=== PATIENT | female | born 1965 | race Caucasian/White ===

== ENCOUNTER → 2016-11-16 | Outpatient (CLI) | payer BC ==
[2016-11-16 07:56] LABS: Basophils % (A) 1 %; CH 31.2; CHCM 33.5; Eosinophils # (A) 0.2 k/uL (0-0.7); Eosinophils % (A) 4 %; HCT 45.5 % (34.0-46.0); HDW 2.77; HGB 14.6 gm/dL (11.4-16.0); Luc # (Auto) 0.16; Luc % (Auto) 3; Lymphocytes # (A) 1.8 k/uL (1.0-4.8); Lymphocytes % (A) 30 %; MCH 30.1 pg (25.0-35.0); MCHC 32.1 g/dL (31.0-37.0); MCV 93.7 fL (80.0-100.0); Mean Platelet Volume 7.1; Monocytes # (A) 0.4 k/uL (0-1.0); Monocytes % (A) 7 %; Neutrophils # (A) 3.3 k/uL (1.3-7.7); Neutrophils % (A) 56 %; RBC 4.85 m/uL (3.80-5.40); RDW 12.9 % (11.5-15.5); WBC 5.9 k/uL (3.8-10.6)
[2016-11-16 08:39] LABS: ALT 30 U/L (9-52); AST 19 U/L (14-36); Alkaline Phosphatase 47 U/L (38-126); Anion Gap 8 mmol/L; Blood Urea Nitrogen 16 mg/dL (7-17); Carbon Dioxide 28 mmol/L (22-30); Chloride 104 mmol/L (98-107); Cholesterol 215 mg/dL (<200); Glucose 89 mg/dL (74-99); HDL Cholesterol 56 mg/dL (40-60); Non-African American GFR(MDRD) >60 (>60 ml/min/1.73 sqM); Potassium 3.7 mmol/L (3.5-5.1); Sodium 140 mmol/L (137-145); Total Bilirubin 1.2 mg/dL (0.2-1.3); Total Protein 6.4 g/dL (6.3-8.2); Triglycerides 232 mg/dL (<150)
== END | disposition home or self-care (01) ==
LOC: LABWHC1 07:10
PROVIDERS: ATTEND Nurse Practitioner Family
DX: Z00.00 Encounter for general adult medical examination without abnormal findings (principal); E89.0 Postprocedural hypothyroidism; R60.9 Edema, unspecified; Z13.220 Encounter for screening for lipoid disorders; Z13.21 Encounter for screening for nutritional disorder; Z13.228 Encounter for screening for other metabolic disorders
CPT/HCPCS: 36415; 80053; 80061; 82306; 84439; 84443; 85025

== ENCOUNTER → 2017-12-01 | Outpatient (CLI) | payer BC ==
[2017-12-01 15:08] LABS: Basophils % (A) 0 %; Eosinophils # (A) 0.2 k/uL (0-0.7); Eosinophils % (A) 2 %; HGB 15.3 gm/dL (11.4-16.0); Lymphocytes # (A) 2.4 k/uL (1.0-4.8); Lymphocytes % (A) 26 %; MCH 30.8 pg (25.0-35.0); MCHC 33.2 g/dL (31.0-37.0); MCV 92.9 fL (80.0-100.0); Mean Platelet Volume 7.3; Monocytes # (A) 0.7 k/uL (0-1.0); Monocytes % (A) 7 %; Neutrophils # (A) 5.7 k/uL (1.3-7.7); Neutrophils % (A) 63 %; Platelet Count 282 k/uL (150-450); RBC 4.95 m/uL (3.80-5.40); RDW 12.6 % (11.5-15.5); WBC 9.1 k/uL (3.8-10.6)
[2017-12-01 15:19] LABS: Calcium 9.4 mg/dL (8.4-10.2); Potassium 4.1 mmol/L (3.5-5.1)
== END | disposition home or self-care (01) ==
LOC: LABPAT 14:08
PROVIDERS: ATTEND Urology
DX: Z01.818 Encounter for other preprocedural examination (principal); Z01.812 Encounter for preprocedural laboratory examination; N39.46 Mixed incontinence; R31.29 Other microscopic hematuria; E03.9 Hypothyroidism, unspecified; R53.83 Other fatigue
CPT/HCPCS: 36415; 80048; 85025; 87086; 93005

== ENCOUNTER 2017-12-08 06:00 | Day surgery (SDC) | payer BC ==
[2017-12-05 09:26] VITALS: BMI 31.8
--- NOTE | 2017-12-07 17:10 | P.GSHP ---
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 She has previously performed Kegel exercises, without benefit. The urge component of the incontinence is insignificant. Physical examination reveals mild urethral hypermobility, and urodynamic testing is consistent with type II stress urinary incontinence. She has elected to undergo a TOT sling. - Gastrointestinal Gastrointestinal: Reports heartburn - Genitourinary (Female) Genitourinary: Reports mixed incontinence - Musculoskeletal Musculoskeletal: Reports neck stiffness - Neurological Neurological: Reports migraines Past Medical History Past Medical History: GERD/Reflux, Hyperlipidemia, Thyroid Disorder Past Surgical History: Back Surgery, Tubal Ligation Smoking Status: Never smoker - Past Family History Father Family Medical History: Hypertension Mother Family Medical History: Diabetes Mellitus, Hypertension Medications and Allergies Home Medications Medication Instructions Recorded Confirmed Type ALPRAZolam [Xanax] 0.25 mg PO TID PRN 12/05/17 12/05/17 History Ascorbic Acid [Vitamin C] 1,000 mg PO DAILY 12/05/17 12/05/17 History Cholecalciferol (Vitamin D3) 2,000 unit PO DAILY 12/05/17 12/05/17 History [Vitamin D3] Fish Oil/Dha/Epa [Fish Oil 1,200 1 each PO DAILY 12/05/17 12/05/17 History mg Fish Oil] Hydrochlorothiazide [Hydrodiuril] 25 mg PO DAILY 12/05/17 12/05/17 History Levothyroxine Sodium [Synthroid] 175 mcg PO DAILY 12/05/17 12/05/17 History Liothyronine Sodium [Cytomel] 25 mcg PO DAILY 12/05/17 12/05/17 History Multivitamins, Thera [Multivitamin 1 tab PO DAILY 12/05/17 12/05/17 History (formulary)] Vitamin B Complex 1 each PO DAILY 12/05/17 12/05/17 History Zinc 50 mg PO DAILY 12/05/17 12/05/17 History Allergies Allergy/AdvReac Type Severity Reaction Status Date / Time codeine AdvReac Nausea & Verified 12/05/17 09:31 Vomiting Surgical - Exam - General well developed, well nourished, no distress - Respiratory normal respiratory effort, clear to auscultation - Cardiovascular Rhythm: regular Abnormal Heart Sounds: no systolic murmur, no diastolic murmur - Abdomen Abdomen: soft, non tender, no guarding, no rigid, no rebound - Genitourinary normal external genitalia - Psychiatric oriented to time, oriented to person, oriented to place, speech is normal, memory intact Assessment and Plan (1) Mixed incontinence urge and stress (male)(female) Status: Acute Code(s): N39.46 - MIXED INCONTINENCE SNOMED Code(s): 558591688 Plan: The patient has elected to undergo an Obtryx subfascial sling. The procedure was reviewed in detail with the patient. Potential risks include anesthesia, bleeding, infection, persistent incontinence, urinary retention, increased urgency, and graft erosion. Controversy involving the use of synthetic slings was also discussed in detail.
[~2017-12-08 06:00] MED LIST: CLINDAMYCIN 900 MG in DEXTROSE 5% IN WATER 50 ML IVPB ONE; DEXAMETHASONE SOD PHOSPHATE 10 MG/ML 1 ML VIAL IV ONE; GENTAMICIN 120 MG in SODIUM CHLORIDE 0.9% 100 ML IVPB ONE; LACTATED RINGERS 1,000 ML IV SCH; ONDANSETRON 4 MG/2 ML VIAL IVP ONE
[2017-12-08] MEDS ORDERED: LIDOCAINE 1% 20 ML VIAL (10MG/ML) FOR IV START INTRADERMA ONE (06:41)
[2017-12-08] MEDS ORDERED: SCOPOLAMINE 1.5MG/72HR PATCH TRANSDERM STA (06:50)
[2017-12-08] MEDS ORDERED: LIDOCAINE 1%-EPI 1:100,000 30 ML VIAL SQ ONE (07:34)
[2017-12-08] MEDS ORDERED: fentaNYL (PF) 50 MCG/ML 2 ML AMP ONE (07:34)
[2017-12-08] MEDS ORDERED: GENTAMICIN 40 MG/ML 2 ML VIAL IRRIGATION ONE (07:34)
[2017-12-08] MEDS ORDERED: PROPOFOL 10 MG/ML 20 ML VIAL IV ONE (07:34)
[2017-12-08] MEDS ORDERED: LIDOCAINE 1% INJ 10MG/ML (20 ML MDV) ONE (07:34)
[2017-12-08] MEDS ORDERED: MIDAZOLAM 2 MG/2 ML VIAL ONE (07:34)
[2017-12-08] MEDS ORDERED: ePHEDrine SULFATE/0.9% NACL/PF 50 MG/5 ML SYRINGE IV ONE (07:34)
[2017-12-08] MEDS ORDERED: SUCCINYLCHOLINE CHLORIDE 100 MG/5 ML SYR IV ONE (07:34)
[2017-12-08] MEDS ORDERED: PHENYLEPHRINE-0.9% NACL SYG 1 MG/10 ML SYRINGE ONE (07:34)
--- NOTE | 2017-12-08 08:40 | P.OP ---
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 She has previously performed Kegel exercises, without benefit. The urge component of the incontinence is insignificant. Physical examination reveals mild urethral hypermobility, and urodynamic testing is consistent with type II stress urinary incontinence. She has elected to undergo a TOT sling. Operative Findings: No anatomic variation noted. Description of Procedure: The patient was taken to the operating room and placed in the dorsal lithotomy position, with her legs supported in Jakub stirrups. The perineum, lower abdomen, and vagina were prepped and draped sterilely. A 16-Bahamian Veloz catheter was placed. Silk sutures were placed to retract the labia laterally on each side. 1% Lidocaine with epinephrine was injected submucosally within the anterior vaginal wall, over the urethra. The scalpel was then used to make an anterior midline vaginal incision over the urethra. Metzenbaum scissors were used to dissect laterally within the submucosal plane, to the inferior pubic ramus. The scalpel was used to make bilateral groin incisions at the level of the clitoris. Subcutaneous tissues were spread with a hemostat. Each of the helical needles were passed through the respective groin incision, and turned such that the needle tip wrapped around the pubis. The needle tips were guided digitally into the vaginal incision. The Obtryx graft, which had been previously soaked in antibiotic solution, was secured to the needle tips in the standard fashion. The needles were then withdrawn, and the position of the graft was adjusted such that it overlie the mid urethra, as desired. With a hemostat placed between the graft and the urethra to prevent tension of the graft over the urethra, the plastic sheath was removed from the ends of the graft. The ends of the graft were cut beneath the skin incisions, and these incisions were closed using 4-0 Vicryl suture in a subcuticular fashion. Hemostasis within the vaginal incision was excellent, and the vaginal incision was closed using 2-0 Vicryl suture in a running fashion. Cystoscopy was performed. The 30 lens was used to introduce the 19-Bahamian Storz cystoscopic sheath through the urethra and into the bladder under direct vision. The urethra and bladder were unremarkable. There was no evidence of perforation. Both ureteral orifices were of normal anatomic location and configuration, and clear urine effluxed from both. No tumors or foreign bodies were seen. The cystoscope was removed, and the Veloz catheter was replaced into the bladder. All sponge and needle counts were correct. The patient tolerated the procedure well was taken to the recovery room in stable condition.
[2017-12-08] MEDS ORDERED: KETOROLAC 30 MG/ML 1 ML VIAL IVP PRN (08:48)
[2017-12-08] MEDS ORDERED: ONDANSETRON 4 MG/2 ML VIAL IVP PRN (08:48)
[2017-12-08] MEDS ORDERED: DEXTROSE 5%-0.45% NACL 1,000 ML IV SCH (09:00)
[2017-12-08] MEDS ORDERED: diphenhydrAMINE 50 MG/ML 1 ML VIAL IVP ONE (09:12)
[2017-12-08] MEDS ORDERED: ACETAMINOPHEN IV (For NPO) 1,000 MG/100 ML VIAL IVPB ONE (09:18)
[2017-12-08] MEDS: HYDROmorphone 0.5 MG/0.5 ML SYRINGE IVP PRN ×2 (09:32→09:46)
[2017-12-08] MEDS: CLINDAMYCIN 150 MG CAP PO SCH ×3 (11:11→21:40)
[2017-12-08] MEDS: HYDROcodone/APAP 5-325MG 1 EACH TAB PO PRN ×4 (11:23→21:39)
[2017-12-08] MEDS ORDERED: ALPRAZolam 0.25 MG TAB PO PRN (12:48)
[2017-12-08 20:50] VITALS: RESP 20
[2017-12-08] MEDS ORDERED: ALPRAZolam 0.25 MG TAB ONE (23:10)
[2017-12-09] MEDS ORDERED: HYDROcodone/APAP 5-325MG 1 EACH TAB ONE (03:45)
[2017-12-09] MEDS ORDERED: LEVOTHYROXINE 100 MCG TAB PO SCH (06:30)
[2017-12-09] MEDS ORDERED: LIOTHYRONINE SODIUM 5 MCG TAB PO SCH (06:30)
[2017-12-09] MEDS ORDERED: LEVOTHYROXINE 75 MCG TAB PO SCH (06:30)
--- NOTE | 2017-12-09 07:41 | P.DS ---
Providers Expected date of discharge: 12/09/17 Attending physician: Ghulam Maldonado Primary care physician: Kriss Nam - Discharge Diagnosis(es) (1) Mixed incontinence urge and stress (male)(female) Current Visit: No Status: Acute Hospital Course: On the day of admission, the patient underwent an uncomplicated Obtryx subfascial sling. The perioperative course was unremarkable. She remained afebrile with stable vital signs. On the first postoperative day, she reported minimal discomfort. The Veloz catheter was removed, but she has not yet voided. The groin incisions are clean and dry. Procedures: Obtryx subfascial sling on 12/08/2017. Patient Condition at Discharge: Good Plan - Discharge Summary Discharge Rx Participant: No New Discharge Prescriptions: New Hydrocodone/Acetaminophen [[place] 5-325] 1 - 2 each PO Q4HR PRN #10 tab PRN Reason: Pain No Action Multivitamins, Thera [Multivitamin (formulary)] 1 tab PO DAILY ALPRAZolam [Xanax] 0.25 mg PO TID PRN PRN Reason: Anxiety Liothyronine Sodium [Cytomel] 25 mcg PO DAILY Zinc 50 mg PO DAILY Vitamin B Complex 1 each PO DAILY Levothyroxine Sodium [Synthroid] 175 mcg PO DAILY Fish Oil/Dha/Epa [Fish Oil 1,200 mg Fish Oil] 1 each PO DAILY Cholecalciferol (Vitamin D3) [Vitamin D3] 2,000 unit PO DAILY Ascorbic Acid [Vitamin C] 1,000 mg PO DAILY Hydrochlorothiazide [Hydrodiuril] 25 mg PO DAILY Discharge Medication List ALPRAZolam [Xanax] 0.25 mg PO TID PRN 12/05/17 [History] Ascorbic Acid [Vitamin C] 1,000 mg PO DAILY 12/05/17 [History] Cholecalciferol (Vitamin D3) [Vitamin D3] 2,000 unit PO DAILY 12/05/17 [History] Fish Oil/Dha/Epa [Fish Oil 1,200 mg Fish Oil] 1 each PO DAILY 12/05/17 [History] Hydrochlorothiazide [Hydrodiuril] 25 mg PO DAILY 12/05/17 [History] Levothyroxine Sodium [Synthroid] 175 mcg PO DAILY 12/05/17 [History] Liothyronine Sodium [Cytomel] 25 mcg PO DAILY 12/05/17 [History] Multivitamins, Thera [Multivitamin (formulary)] 1 tab PO DAILY 12/05/17 [History ] Vitamin B Complex 1 each PO DAILY 12/05/17 [History] Zinc 50 mg PO DAILY 12/05/17 [History] Hydrocodone/Acetaminophen [[place] 5-325] 1 - 2 each PO Q4HR PRN #10 tab 12/09/17 [Rx] Follow up Appointment(s)/Referral(s): Ghulam Maldonado MD [STAFF PHYSICIAN] - 12/14/17 Activity/Diet/Wound Care/Special Instructions: Discharge home if postvoid residual is under 200 mL. No lifting, driving, strenuous activity, or intercourse. Diet as tolerated. Okay to shower. Discharge Disposition: HOME SELF-CARE
[2017-12-09] MEDS ORDERED: HYDROCHLOROTHIAZIDE 25 MG TAB PO SCH (09:00)
[2017-12-09 09:43] VITALS: BP 126/72; PULSE 79; TEMP 98.3
[2017-12-09] MEDS: CLINDAMYCIN 150 MG CAP PO SCH (09:52)
[2017-12-09] MEDS: HYDROcodone/APAP 5-325MG 1 EACH TAB PO PRN (09:56)
== END 2017-12-09 11:42 | disposition home or self-care (01) ==
LOC: OR 06:00 → 6PED 08:47 → OR 12-09 11:42
PROVIDERS: ATTEND Urology
DX: N39.46 Mixed incontinence (principal); K21.9 Gastro-esophageal reflux disease without esophagitis; E78.5 Hyperlipidemia, unspecified; E07.9 Disorder of thyroid, unspecified; Z79.890 Hormone replacement therapy; Z79.899 Other long term (current) drug therapy; Z88.5 Allergy status to narcotic agent
CPT/HCPCS: 81025; 57288; C1771; J2250; J1200; J1580 ×2; J1100; J2405; J2001; J3010; J0131; J2370; J0330; J2704; J1170

== ENCOUNTER → 2020-03-20 | Outpatient (CLI) | payer BC | END | disposition home or self-care (01) | LOC: LABWHC1 15:22 | PROVIDERS: ATTEND Nurse Practitioner Family | DX: Z20.828 Contact with and (suspected) exposure to other viral communicable diseases (principal) | CPT/HCPCS: U0003; C9803 ==

== ENCOUNTER → 2020-08-08 | Outpatient (CLI) | payer BC ==
--- NOTE | 2020-08-12 10:41 | MM ---
Reason for exam: screening (asymptomatic). Last mammogram was performed 4 years and 6 months ago. Physical Findings: A clinical breast exam by your physician is recommended on an annual basis and results should be correlated with mammographic findings. MG 3D Screening Mammo W/Cad Bilateral CC and MLO view(s) were taken. Prior study comparison: February 12, 2016, bilateral MG 3d diag mammo w/cad [facility]. October 22, 2014, left breast MG work up mamm w CAD LT. No significant changes when compared with prior studies. ASSESSMENT: Benign, BI-RAD 2 RECOMMENDATION: Routine screening mammogram of both breasts in 1 year.
== END | disposition home or self-care (01) ==
LOC: RADMAMWWP 15:55
PROVIDERS: ATTEND Obstetrics & Gynecology
DX: Z12.31 Encounter for screening mammogram for malignant neoplasm of breast (principal)
CPT/HCPCS: 77063; 77067

== ENCOUNTER 2020-11-12 09:21 | Day surgery (SDC) | payer BC ==
[2020-11-07 14:57] VITALS: BMI 33.6
[~2020-11-12 09:21] MED LIST changes: -CLINDAMYCIN 900 MG in DEXTROSE 5% IN WATER 50 ML IVPB ONE; -DEXAMETHASONE SOD PHOSPHATE 10 MG/ML 1 ML VIAL IV ONE; -GENTAMICIN 120 MG in SODIUM CHLORIDE 0.9% 100 ML IVPB ONE; +LIDOCAINE 1% (10MG/ML) FOR IV START INTRADERMA PRN; -ONDANSETRON 4 MG/2 ML VIAL IVP ONE
[2020-11-12 09:45] VITALS: RESP 18; TEMP 96.9
[2020-11-12] MEDS ORDERED: PROPOFOL 10 MG/ML 20 ML VIAL IV ONE (10:18)
--- NOTE | 2020-11-12 10:34 | P.PCN ---
Date of Procedure: 11/12/20 Procedure(s) Performed: BRIEF HISTORY: Patient is a 55-year-old pleasant white female scheduled for an elective colonoscopy as a part of screening for colorectal neoplasia. PROCEDURE PERFORMED: Colonoscopy with snare polypectomy. PREOPERATIVE DIAGNOSIS: Screening for colon cancer. IV sedation per Anesthesia. PROCEDURE: After informed consent was obtained, the patient, was brought into the endoscopy unit. IV sedation was administered by Anesthesia under continuous monitoring. Digital rectal examination was normal. Initially the Olympus CF-160 flexible video colonoscope was then inserted in the rectum, gradually advanced into the cecum without any difficulty. Careful examination was performed as the scope was gradually being withdrawn. Ileocecal valve and the appendiceal orifice were visualized and appeared normal. Prep was excellent. Mucosa of the cecum, ascending colon, transverse colon, descending colon, sigmoid colon, and rectum appeared normal. In the proximal rectum there was a 1.5 cm pedunculated polyp removed by snare polypectomy. Retroflexion was performed in the rectum and no lesions were seen. The patient tolerated the procedure well. IMPRESSION: 1.5 cm proximal rectal polyp status post polypectomy Rest of the colon appeared normal RECOMMENDATIONS: Findings of this examination were discussed with the patient as well as a family. She was advised to follow with the biopsy results. If the biopsy shows an adenoma she can have a repeat colonoscopy in 3 years..
[2020-11-12 11:02] VITALS: BP 144/83; PULSE 65
== END 2020-11-12 11:34 | disposition home or self-care (01) ==
LOC: ORWHC2ENDO 09:21
PROVIDERS: ATTEND Internal Medicine Gastroenterology
DX: Z12.11 Encounter for screening for malignant neoplasm of colon (principal); D12.8 Benign neoplasm of rectum; K21.9 Gastro-esophageal reflux disease without esophagitis; E78.5 Hyperlipidemia, unspecified; E07.9 Disorder of thyroid, unspecified; F17.200 Nicotine dependence, unspecified, uncomplicated; Z79.899 Other long term (current) drug therapy; Z88.1 Allergy status to other antibiotic agents; Z88.2 Allergy status to sulfonamides; Z88.5 Allergy status to narcotic agent
CPT/HCPCS: 88305; 45385; J2704

== ENCOUNTER → 2022-12-03 | Outpatient (CLI) | payer BC ==
--- NOTE | 2022-12-06 08:59 | MM ---
Reason for Exam: Screening (asymptomatic). Last mammogram was performed 2 year(s) and 4 month(s) ago. Patient History: Menarche at age 13. First Full-Term at age 29. Risk Values: Keshia 5 year model risk: 1.4%. NCI Lifetime model risk: 8.9%. Prior Study Comparison: 10/22/2014 Left Diagnostic Mammogram, [facility]. 02/12/2016 Bilateral Diagnostic Mammogram, [facility]. 08/08/2020 Bilateral Screening Mammogram, [facility]. Tissue Density: There are scattered fibroglandular densities. Findings: Analyzed By CAD. There is no suspicious group of microcalcifications or new suspicious mass in either breast. Overall Assessment: Negative, BI-RAD 1 Management: Screening Mammogram of both breasts in [address] [facility] will attempt to contact patient to return for supplemental views and ultrasound if indicated. Patient should continue monthly self-breast exams. A clinical breast exam by your physician is recommended on an annual basis. This exam should not preclude additional follow-up of suspicious palpable abnormalities. Note on Keshia scores and lifetime risk: 1. A Keshia score greater than 3% is considered moderate risk. If this is the case, consider specialist referral to assess eligibility for a risk reducing agent. 2. If overall lifetime risk for the development of breast cancer is 20% or higher, the patient may qualify for future screening with alternating mammogram and breast MRI. Electronically signed and approved by: Samy Rolle DO
== END | disposition home or self-care (01) ==
LOC: RADMAMWWP 07:57
PROVIDERS: ATTEND Physician Assistant
DX: Z12.31 Encounter for screening mammogram for malignant neoplasm of breast (principal)
CPT/HCPCS: 77063; 77067

== ENCOUNTER → 2024-03-30 | Outpatient (CLI) | payer BC ==
--- NOTE | 2024-04-02 09:35 | MM ---
Reason for Exam: Screening (asymptomatic). Last mammogram was performed 1 year(s) and 4 month(s) ago. Patient History: Menarche at age 13. First Full-Term at age 29. Postmenopausal. Risk Values: Keshia 5 year model risk: 1.4%. NCI Lifetime model risk: 8.7%. Prior Study Comparison: 02/12/2016 Bilateral Diagnostic Mammogram, [facility]. 08/08/2020 Bilateral Screening Mammogram, [facility]. 12/03/2022 Bilateral MG 3D screening mammo w/cad, [facility]. Tissue Density: There are scattered areas of fibroglandular density. Findings: Analyzed By CAD. Right breast: There is no suspicious group of microcalcifications or new suspicious mass. Left breast: There is no suspicious group of microcalcifications or new suspicious mass. Overall Assessment: Negative, BI-RAD 1 Management: Screening Mammogram of both breasts in [address] [facility] will attempt to contact patient to return for supplemental views and ultrasound if indicated. Patient should continue monthly self-breast exams. A clinical breast exam by your physician is recommended on an annual basis. This exam should not preclude additional follow-up of suspicious palpable abnormalities. Note on Keshia scores and lifetime risk: 1. A Keshia score greater than 3% is considered moderate risk. If this is the case, consider specialist referral to assess eligibility for a risk reducing agent. 2. If overall lifetime risk for the development of breast cancer is 20% or higher, the patient may qualify for future screening with alternating mammogram and breast MRI. [facility], , 04/02/2024 9:32 AM. Electronically signed and approved by: Samy Rolle DO
== END | disposition home or self-care (01) ==
LOC: RADMAMWWP 07:27
PROVIDERS: ATTEND Internal Medicine Geriatric Medicine
DX: Z12.31 Encounter for screening mammogram for malignant neoplasm of breast (principal); R92.323 Mammographic fibroglandular density, bilateral breasts; Z78.0 Asymptomatic menopausal state
CPT/HCPCS: 77063; 77067

== ENCOUNTER → 2024-08-23 | Outpatient (CLI) | payer BC ==
--- NOTE | 2024-08-23 15:09 | US ---
EXAMINATION TYPE: US axilla RT DATE OF EXAM: 08/23/2024 COMPARISON: Mammography CLINICAL INDICATION: Female, 59 years old with history of R59.1 GENERALIZED ENLARGED LYMPH NODES; pal pable area x several months. TECHNIQUE: several grayscale and color doppler images taken at area of palpable. FINDINGS: Palpable area corresponds to 1.8 x 0.9 x 1.7 cm benign appearing lymph node beneath the fa scial layer. Several other lymph nodes noted in this area. May be seen on 03/30/24 MG RMLO view. IMPRESSION: Benign-appearing lymph node within the subcutaneous tissues. No suspicious lymph node organizing flui d collection or mass. Cortex within normal limits. [facility], , 08/23/2024 3:07 PM
== END | disposition home or self-care (01) ==
LOC: RADUSWWP 14:01
PROVIDERS: ATTEND Internal Medicine Geriatric Medicine
DX: R59.1 Generalized enlarged lymph nodes (principal)

== ENCOUNTER → 2024-08-27 | Outpatient (CLI) | payer BC ==
--- NOTE | 2024-08-27 14:00 | CA ---
Stress Echo Report Ana Maria Rivas Age: 59 Gender: F : 1965 Exam Date: 08/27/2024 11:10 Exam Location: [facility] Ht (in): 63 Wt (lb): 220 Ordering Physician: Donnell Lange MD Referring Physician: Elo Banks Automation Analyst: Samantha Dewitt RDCS Technologist Procedure CPT: Indication: R07.9 CHEST PAIN, UNSPECIFIED ICD-9 Codes: Rhythm: Patient History: CHEST PAIN, DIFFICULTY IN BREATHING, HYPERCHOLESTEROLEMIA, FAMILY HX OF HEART DISEASE, PRIOR SMOKER Cardiac Medications: LEVOTHYROXINE,,,,,, LASIX,,,,,, POTASSIUM,,,,,, TRIAMTERENE,,,,,, FENOFIBRATE,,,,,, OMEPRAZOLE,,,,,, MELOXICAM,,,,, Medications in past 24 hours: Contrast: Stress Results Protocol: Total dose(mL): Exercise Duration (min:sec): 5:[address] Depression (mm): Angina Score: Lew Score: METS: 6.8 Resting HR: 77 Resting BP: 137 / 83 Peak HR: 141 Peak BP: 210 / 49 Max Predicted HR: 162 87 % Max Predicted HR Target HR: 138 Double Product: [id number] Stress Summary: BP Response: Reason for Termination: MAX EXERTION/TARGET HR Cardiac Symptoms: EVITA, MILD CP ECG Analysis Resting ECG: Stress ECG: Arrhythmia: Echo Analysis Resting Echo: Peak Echo Analysis: MEASUREMENTS (Male/Female) Normal Values CONCLUSIONS Good exercise tolerance Normal stress echocardiogram Dr. Ubaldo Mckeon MD (Electronically Signed) Final Date: 27 August 2024 13:59
== END | disposition home or self-care (01) ==
LOC: RADNMMAIN 10:36
PROVIDERS: ATTEND Internal Medicine Geriatric Medicine
DX: R07.9 Chest pain, unspecified (principal); R06.00 Dyspnea, unspecified; E78.00 Pure hypercholesterolemia, unspecified; Z82.49 Family history of ischemic heart disease and other diseases of the circulatory system; Z87.891 Personal history of nicotine dependence
CPT/HCPCS: 93351